=== PATIENT | female | born 2000 | race Caucasian/White ===

== ENCOUNTER 2019-04-16 02:01 | Emergency (ER) | payer SELFPAY ==
--- NOTE | 2019-04-16 02:37 | ED Physician Documentation ---
PD HPI UPPER EXT INJURY - Stated complaint Stated Complaint: LT THUMB NAIL PX - Chief complaint Chief Complaint: Trauma Ext - History obtained from History obtained from: Patient - History of Present Illness Location: Left (thumb) Where injury occurred: Other Timing - onset: Today Timing - details: Abrupt onset Recently seen: Not recently seen - Additonal information Additional information: This is a 18-year-old presents with a friend with complaints that she was carrying a heavy bag earlier this morning and it bent back her left thumb acrylic nail. Throughout the day the nail was lifted more off of the nailbed now it is very painful. She wants it off. PD PAST MEDICAL HISTORY - Present Medications Home Medications: Ambulatory Orders Medication Instructions Recorded Confirmed No Known Home Medications 04/16/19 04/16/19 - Allergies Allergies/Adverse Reactions: Allergies Allergy/AdvReac Type Severity Reaction Status Date / Time No Known Drug Allergies Allergy Verified 04/16/19 02:08 PD ED PE NORMAL - Vitals Vital signs reviewed: Yes - General General: Alert and oriented X 3, Well developed/nourished - HEENT HEENT: Atraumatic - Respiratory Respiratory: No respiratory distress - Extremities Extremities: Other (The left thumbnail has a very brightly colored acrylic nail on it and is lifted completely off the nail bed but still attached under the nail fold.) Results - Vitals Vitals: Vital Signs - 24 hr 04/16/19 04/16/19 02:05 03:30 Temperature 37.3 C Heart Rate 95 97 Respiratory 16 16 Rate Blood Pressure 123/83 H 124/58 L O2 Saturation 100 100 Oxygen O2 Source Room air Procedures - General procedure General procedure: Nail removal L thumb: The thumb was thoroughly cleansed with Hibiclens. Local anesthesia was achieved with 1% lidocaine at the base of the nail. Iris scissors were used to trim the nail as close to the base of the acrylic nail as possible. Patient tolerated the procedure well. PD MEDICAL DECISION MAKING - ED course Complexity details: d/w patient ED course: We had a lengthy discussion about pros and cons of leaving the nail intact, trimming it below the acrylic nail or removing the nail in its entirety. She desired to have the nail trimmed off. She will continue to trim the nail as it grows and she is aware that the great nail may not grow back or if it does not may be abnormal. She was placed with Vaseline gauze and a tube gauze prior to discharge and instructed on wound care. She declined any pain medications but did receive ibuprofen here in the department. Departure - Departure Disposition: 01 Home, Self Care Clinical Impression: Nail avulsion, finger Condition: Good Instructions: ED Avulsion Nail Complete Follow-Up: your,doctor [Other] Comments: Leave our dressing on and keep it clean and dry for 24 to 48 hours. After you remove her dressing you may want to put a little bit of antibiotic ointment on the nailbed and keep it covered while it heals and toughens up. Your nail may grow back abnormal or not at all. Ibuprofen or Tylenol for pain. Discharge Date/Time: 04/16/19 03:46
[2019-04-16] MEDS ORDERED: BUFFERED LIDOCAINE 10 ML SYRINGE SUBQ STA (02:38)
[2019-04-16] MEDS ORDERED: IBUPROFEN 600 MG TABLET PO STA (03:24)
[2019-04-16 03:31] VITALS: BP 124/58
== END 2019-04-16 03:46 | disposition home or self-care (01) ==
LOC: ED 02:01
DX: S61.102A Unspecified open wound of left thumb with damage to nail, initial encounter (principal); X58.XXXA Exposure to other specified factors, initial encounter; Y93.89 Activity, other specified
CPT/HCPCS: 11730; 99281; 99282; A9270